=== PATIENT | female | born 1980 | race Caucasian/White ===

== ENCOUNTER 2019-02-22 14:51 | Emergency (ER) | payer SELFPAY ==
[~2019-02-22] VITALS: Ht 154.9 cm; Wt 68.2 kg
[2019-02-22] MEDS ORDERED: dexameTHASONE 20 MG/5 ML VIAL (J1100) IV ONE (15:45)
[2019-02-22] MEDS ORDERED: FAMOTIDINE INJ 20MG/2ML VIAL (S0028) IVP ONE (15:45)
[2019-02-22] MEDS ORDERED: NOVOINJ SC (16:00)
[2019-02-22] MEDS ORDERED: PROMETHAZINE INJ 25 MG/ML VIAL (J2550) IM ONE (16:00)
[2019-02-22] MEDS ORDERED: 5FU (16:00)
[2019-02-22] MEDS ORDERED: PREM0.9T PO (16:00)
[2019-02-22] MEDS ORDERED: LANTINJ4 SC (16:00)
[2019-02-22 18:21] VITALS: BP 133/88
[2019-02-22] MEDS ORDERED: EPIP0.3I2 IM ×2 (18:31→18:44)
== END 2019-02-22 18:40 | disposition home or self-care (01) ==
LOC: M ED 14:51 → EDBD 14:51 → M ED 18:40
DX: R22.0 Localized swelling, mass and lump, head (principal); R00.0 Tachycardia, unspecified; T78.1XXA Other adverse food reactions, not elsewhere classified, initial encounter; X58.XXXA Exposure to other specified factors, initial encounter; Y92.89 Other specified places as the place of occurrence of the external cause; C22.8 Malignant neoplasm of liver, primary, unspecified as to type; Z88.2 Allergy status to sulfonamides; Z88.8 Allergy status to other drugs, medicaments and biological substances; Z91.013 Allergy to seafood; Z79.899 Other long term (current) drug therapy; Z79.4 Long term (current) use of insulin
CPT/HCPCS: 96372; 96374; 96375; 99284; J1100

== ENCOUNTER 2021-04-30 04:01 | Observation (INO) | payer SELFPAY ==
[~2021-04-30] VITALS: Ht 154.9 cm; Wt 66.4 kg
[~2021-04-30 04:01] MED LIST: 5FU; EPIP0.3I2 IM; LANTINJ4 SC; NOVOINJ SC; PREM0.9T PO
[2021-04-30] MEDS ORDERED: NS 1,000 ML IV ONE (04:35)
[2021-04-30 04:49] LABS: BASO # 0.1 10^3/uL (0.0-0.2); BASO % 0.6 % (0.0-1.0); EOS # 0.1 10^3/uL (0.0-0.5); HEMATOCRIT 40.2 % (36.0-47.0); HEMOGLOBIN 13.4 g/dl (12.0-15.5); LYMPH # 2.9 10^3/uL (1.5-5.0); LYMPH % 28.2 % (24.0-44.0); MEAN CORPUSCULAR HEMOGLOBIN 27.4 pg (27.0-33.0); MEAN CORPUSCULAR HGB CONC 33.3 g/dl (32.0-36.5); MEAN CORPUSCULAR VOLUME 82.2 fl (80.0-96.0); MONO # 0.7 10^3/uL (0.0-0.8); MONO % 6.9 % (2.0-8.0); NEUTROPHILS # 6.4 10^3/uL (1.5-8.5); NEUTROPHILS % 62.9 % (36.0-66.0); PLATELET COUNT, AUTOMATED 365 10^3/uL (150-450); RED BLOOD COUNT 4.89 10^6/uL (4.00-5.40); WHITE BLOOD COUNT 10.2 10^3/uL (4.0-10.0)
--- NOTE | 2021-04-30 05:15 | REPVR ---
PROCEDURE INFORMATION: Exam: CT Head Without Contrast Exam date and time: 04/30/2021 4:32 AM Age: 40 years old Clinical indication: Injury or trauma; Fall; Concussion/head injury TECHNIQUE: Imaging protocol: Computed tomography of the head without contrast. Radiation optimization: All CT scans at this facility use at least one of these dose optimization techniques: automated exposure control; mA and/or kV adjustment per patient size (includes targeted exams where dose is matched to clinical indication); or iterative reconstruction. COMPARISON: No relevant prior studies available. FINDINGS: Brain: Upper normal sulci. The caal and white matter is within normal limits. Cerebral ventricles: There is slight prominence of the central ventricular system. Paranasal sinuses: Bilateral maxillary, ethmoid and frontal sinus mucosal thickening and fluid. Mastoid air cells: Visualized mastoid air cells are well aerated. Bones/joints: Unremarkable. No acute fracture. Soft tissues: Unremarkable. IMPRESSION: 1. Minimal atrophic change for age. 2. Bilateral maxillary, ethmoid and frontal sinus disease. 3. Otherwise negative noncontrast head CT. Electronically signed by: Leonides Graham On 04/30/2021 05:14:12 AM
[2021-04-30] MEDS ORDERED: SYNT100T PO (05:16)
[2021-04-30] MEDS ORDERED: ADDE20CA3 PO (05:16)
[2021-04-30] MEDS ORDERED: KLON1TAB PO (05:16)
--- NOTE | 2021-04-30 05:19 | REPVR ---
PROCEDURE INFORMATION: Exam: CT Cervical Spine Without Contrast Exam date and time: 04/30/2021 4:32 AM Age: 40 years old Clinical indication: Neck pain; Additional info: Trauma TECHNIQUE: Imaging protocol: Computed tomography images of the cervical spine without contrast. Radiation optimization: All CT scans at this facility use at least one of these dose optimization techniques: automated exposure control; mA and/or kV adjustment per patient size (includes targeted exams where dose is matched to clinical indication); or iterative reconstruction. COMPARISON: No relevant prior studies available. FINDINGS: Vertebrae: No acute fracture or compression. C2-C3: Slight interspace narrowing with no spinal or foraminal stenosis. C3-C4: The disc is adequately well maintained and no significant degenerative change with no spinal or foraminal stenosis. C4-C5: The disc is within normal limits with no spinal or foraminal stenosis. C5-C6: Mild interspace narrowing with slight retrolisthesis and minimal broad-based posterior osteophytes and bilateral degenerative change, primarily uncovertebral joints with borderline spinal stenosis and borderline left neural foraminal stenosis. C6-C7: Slight interspace narrowing with minimal posterior paracentral osteophytes on the left and degenerative changes of uncovertebral joints. No significant spinal or foraminal stenosis. C7-T1: Mild interspace narrowing with endplate irregularities and Schmorl's defects with slight sclerosis. There is minimal degenerative change of uncovertebral joints with no significant spinal or foraminal stenosis. Soft tissues: Unremarkable. Sinuses: Bilateral maxillary sinus mucosal thickening and fluid. Lungs: Lung apices are normal. IMPRESSION: 1. Bilateral maxillary sinus disease. 2. Multilevel degenerative changes with no significant spinal or foraminal stenosis. 3. Otherwise negative CT cervical spine. No acute fracture or subluxation. Electronically signed by: Leonides Graham On 04/30/2021 05:19:01 AM
[2021-04-30 05:24] LABS: ALBUMIN 3.4 GM/DL (3.2-5.2); ALT/SGPT 16 U/L (12-78); BILIRUBIN,DIRECT 0.1 MG/DL (0.0-0.2); BILIRUBIN,TOTAL 0.4 MG/DL (0.2-1.0); BLOOD UREA NITROGEN 25 MG/DL (7-18); CALCIUM LEVEL 9.8 MG/DL (8.5-10.1); CARBON DIOXIDE LEVEL 23 MEQ/L (21-32); CHLORIDE LEVEL 97 MEQ/L (98-107); CK-MB VALUE MASS < 1.0 NG/ML (<3.6); CPK CREATINE PHOSPHOKINASE 51 U/L (26-192); FREE T4 1.13 NG/DL (0.76-1.46); GLOMERULAR FILTRATION RATE 43.9 (>58); GLUCOSE, FASTING 524 MG/DL (70-100); MB/CK RELATIVE INDEX 1.96 (< OR =4); SODIUM LEVEL 131 MEQ/L (136-145); TOTAL PROTEIN 7.8 GM/DL (6.4-8.2); TROPONIN I < 0.02 NG/ML (< 0.10)
--- NOTE | 2021-04-30 05:24 | REPVR ---
PROCEDURE INFORMATION: Exam: XR Right Knee Exam date and time: 04/30/2021 5:17 AM Age: 40 years old Clinical indication: Pain; Knee; Right; Additional info: Trauma TECHNIQUE: Imaging protocol: XR Right knee. Views: 4 or more views. COMPARISON: CR Femur RIGHT 04/30/2021 4:39 AM FINDINGS: Bones/joints: Normal. Soft tissues: Normal. IMPRESSION: Negative right knee. Electronically signed by: Leonides Graham On 04/30/2021 05:24:05 AM
--- NOTE | 2021-04-30 05:28 | REPVR ---
PROCEDURE INFORMATION: Exam: CT Chest Without Contrast; Diagnostic Exam date and time: 04/30/2021 4:32 AM Age: 40 years old Clinical indication: Pain; Other: Chest; Additional info: Trauma TECHNIQUE: Imaging protocol: Diagnostic computed tomography of the chest without contrast. 3D rendering (Not supervised by radiologist): MIP and/or 3D reconstructed images were created by the technologist. Radiation optimization: All CT scans at this facility use at least one of these dose optimization techniques: automated exposure control; mA and/or kV adjustment per patient size (includes targeted exams where dose is matched to clinical indication); or iterative reconstruction. COMPARISON: CT Spine,cervical w/o contrast 04/30/2021 4:39 AM FINDINGS: Lungs: Minimal dependent atelectasis in the lower lobes. Pleural spaces: Unremarkable. No pneumothorax. No pleural effusion. Heart: Unremarkable. No cardiomegaly. No pericardial effusion. Pulmonary arteries: The main pulmonary artery measures 26 mm. Aorta: The ascending thoracic aorta measures 24 mm. Lymph nodes: Unremarkable. No enlarged lymph nodes. Gallbladder and bile ducts: Status post cholecystectomy. Adjacent cysts or septated cyst adjacent to the gallbladder fossa measuring 4.3 cm with a Hounsfield measurement of -7. Bones/joints: Slight anterior wedge configuration of L1 which appears to be chronic. Soft tissues: Unremarkable. IMPRESSION: 1. Status post cholecystectomy. 2. Adjacent cysts or septated cyst adjacent to the gallbladder fossa measuring 4.3 cm. 3[address] Otherwise negative CT chest. No acute posttraumatic change is seen. Electronically signed by: Leonides Graham On 04/30/2021 05:28:30 AM
--- NOTE | 2021-04-30 05:29 | REPVR ---
PROCEDURE INFORMATION: Exam: XR Right Shoulder Exam date and time: 04/30/2021 5:17 AM Age: 40 years old Clinical indication: Pain; Shoulder; Right; Additional info: Trauma TECHNIQUE: Imaging protocol: XR Right shoulder. Views: 2 or more views. COMPARISON: No relevant prior studies available. FINDINGS: Bones/joints: Normal. Soft tissues: Normal. IMPRESSION: Negative right shoulder. Electronically signed by: Leonides Graham On 04/30/2021 05:29:16 AM
[2021-04-30] MEDS ORDERED: HumuLIN R (REGULAR) INSULIN (NovoLIN R) **100U/ML** PER UNIT IV ONE (05:30)
--- NOTE | 2021-04-30 05:30 | REPVR ---
PROCEDURE INFORMATION: Exam: XR Right Hip Exam date and time: 04/30/2021 5:17 AM Age: 40 years old Clinical indication: Hip pain; Right hip; Additional info: Trauma TECHNIQUE: Imaging protocol: XR Right hip. Views: 2 or 3 views hip with pelvis when performed. COMPARISON: No relevant prior studies available. FINDINGS: Bones/joints: The osseous ring of the pelvis is intact. No right hip fracture. Soft tissues: Unremarkable. Intraperitoneal space: Multiple surgical clips are noted in the central pelvis. IMPRESSION: Negative right hip and pelvis. Electronically signed by: Leonides Graham On 04/30/2021 05:30:26 AM
--- NOTE | 2021-04-30 05:32 | REPVR ---
PROCEDURE INFORMATION: Exam: XR Right Femur Exam date and time: 04/30/2021 5:17 AM Age: 40 years old Clinical indication: Pain; Right; Patient HX: Proximal in hip jacket; Additional info: Trauma TECHNIQUE: Imaging protocol: XR Right femur. Views: 2 views. COMPARISON: No relevant prior studies available. FINDINGS: Bones/joints: Unremarkable. No acute fracture. Soft tissues: Unremarkable. IMPRESSION: Negative right femur. Electronically signed by: Leonides Graham On 04/30/2021 05:31:53 AM
[2021-04-30 05:58] LABS: ABG BASE EXCESS -1.7 (-2.0-2.0); ABG HCO3 21.2 MEQ/L (22.0-26.0); ABG O2 SATURATION 98.3 % (95.0-99.0); ABG PARTIAL PRESSURE CO2 30.4 mmHg (35.0-45.0); ABG PARTIAL PRESSURE O2 107.6 mmHg (75.0-100.0); ABG STANDARD HCO3 23.1 MEQ/L (22.0-26.0); ABG TOTAL CO2 22.2 MEQ/L (22.0-29.0); ABG pH (ARTERIAL) 7.462 UNITS (7.350-7.450)
[2021-04-30 06:47] LABS: RSV AMPLIFICATION NEGATIVE (NEGATIVE)
[2021-04-30] MEDS ORDERED: KETOROLAC 30 MG/ML 1ML VIAL IV ONE (07:30)
[2021-04-30] MEDS: NS 1,000 ML IV SCH ×5 (07:37→20:00)
[2021-04-30] MEDS ORDERED: DEXTROSE 50% 50 ML SYRINGE IV PRN (07:40)
[2021-04-30] MEDS ORDERED: GLUCAGON INJ 1MG VIAL SC PRN (07:40)
[2021-04-30] MEDS ORDERED: GLUCOSE 4GM CHEW TABLET PO PRN (07:40)
[2021-04-30] MEDS ORDERED: clonazePAM 1 MG TAB PO PRN (07:40)
[2021-04-30] MEDS ORDERED: traMADol 50 MG TAB PO PRN (07:40)
[2021-04-30] MEDS ORDERED: ESTR2TAB3 PO (08:46)
[2021-04-30] MEDS ORDERED: ADDE20TA PO (08:46)
[2021-04-30] MEDS ORDERED: INSULANT SC (08:47)
[2021-04-30] MEDS ORDERED: HOME MED LIST COMPLETE! XX SCH (08:50)
[2021-04-30] MEDS ORDERED: AMPHETAMINE/DEXTROAMPHETAMINE 5 MG *ER* CAPSULE (ADDERALL XR) PO SCH (09:00)
[2021-04-30] MEDS: LEVOTHYROXINE 100MCG TABLET (0.1MG) PO SCH (10:08)
[2021-04-30] MEDS: ENOXAPARIN 40MG/0.4ML SYRINGE (J1650 PER 10MG) SC SCH (10:09)
[2021-04-30] MEDS: ADDERALL 5 MG TAB PO SCH ×3 (10:09→16:00)
--- NOTE | 2021-04-30 11:10 | ECGEPIP ---
[facility] - ED Test Date: 2021-04-30 Pat Name: MARIA FARRELL Department: Room: - Gender: Female Creative Services Coordinator: ED : 1980 Requested By: LUC Trejo Order Number: [id number] Reading MD: Nader Campo Measurements Intervals [place] Rate: 111 P: 39 MT: 132 QRS: 58 QRSD: 84 T: 47 QT: 352 QTc: 478 Interpretive Statements Sinus tachycardia NO PRIORS FOR COMPARISON Electronically Signed on 04-30-2021 11:09:52 EST by Nader Campo
[2021-04-30] MEDS: HumaLOG INSULIN (NovoLOG) PER UNIT SC SCH ×2 (11:58→18:58)
[2021-04-30 12:30] LABS: AMPHETAMINES LEVEL URINE POSITIVE (NEGATIVE); BARBITURATES URINE NEGATIVE (NEGATIVE); BENZODIAZEPINES URINE NEGATIVE (NEGATIVE); CANNABINOIDS URINE POSITIVE (NEGATIVE); COCAINE METABOLITE URINE NEGATIVE (NEGATIVE); METHADONE URINE NEGATIVE (NEGATIVE); OPIATES URINE NEGATIVE (NEGATIVE); PHENCYCLIDINE URINE NEGATIVE (NEGATIVE)
--- NOTE | 2021-04-30 15:23 | HPEPDOC ---
[facility] Medical History & Physical Date of Admission Apr 30, 2021 Date of Service: Apr 30, 2021 Attending Physician: SOLO MELENDEZ MD History and Physical CHIEF COMPLAINT: Near syncope, fall and hit head so what brought to the hospital HISTORY OF PRESENT ILLNESS: 40 yo W with a history of DM1, hypothyroidism, ADHD, anxiety who suddenly felt faint and collapsed to the floor with impact to her right side and hit her head and not sure if she had loss of consciousness and EMS was called and she was brought to the ED, with noted hypotension to SBP lowest 82. She denies recent fever, chills, chest pain, palpitations, nausea, emesis, diarrhea, bleeding without a history of hematuria, hematochezia, melena, hematemesis or hemoptysis. She denies recent congestion, rhinorrhea, new productive cough, recent travel or shortness of breath. In the ED she was found to be hypotensive to SBP 82, while saturating well on room air and afebrile. On EKG she was in NSR, troponin was <0.02, WBC was 10.2, hgb 13.4, platelets 365, na 131, K 4, bicarb 23, BUN 25, Cr 1.2, had lactic acidosis to 4, respiratory panel was negative for covid-19, and she was hyperglycemic to 524 that improved to 244 after some insulin in the ED. She was given 1L bolus with a great response to SBP 121 and is now on 250cc/hr NS. She had BCx drawn and had the following imaging that were all grossly negative for acure fractures or pathology. CT head showed no acute intracranial abnormalities, CT of C-spine showed no fractures or subluxation while it showed some sinus fullness with mucosal thickening and fluid bilaterally, CT chest had no opacities, pneumothorax or effusions, R femur XR, R hip XR, R knee CR and R shoulder XR all showed no acute fractures. Given her non-focal ROS outside of near syncope likely i/s/o hypovolemia without evidence of potential infection or cardiac etiology, she is now being admitted for hydration and further investigation. PAST MEDICAL HISTORY: per HPI PAST SURGICAL HISTORY: Appendectomy cholecystectomy 5-6 laparoscopy Hysterectomy SOCIAL HISTORY: Tobacco use: No ETOH: Yes, occasional Illicit drug use: Marijuana ALLERGIES: Please see below. REVIEW OF SYSTEMS: 10 point ROS was otherwise negative, except for the elements noted in the HPI. HOME MEDICATIONS: Please see below. PHYSICAL EXAMINATION: VITAL SIGNS: see below GENERAL APPEARANCE: NAD HEENT: NCAT, EOMI, PERRLA, MMM CARDIOVASCULAR: RRR, no m/r/g LUNGS: CTAB, no crackles, wheezing or rhonchi ABDOMEN: soft, normoactive bowel sounds, NTND MUSCULOSKELETAL: 5/5 strength throughout with full range of motion. Has pain on right side from the fall but has full range of motion EXTREMITIES: WWP, no LE edema, 2+ DP pulses NEUROLOGICAL: CN 3-12 intact, speech is clear, sensation is intact, strength and tone is full. Non-focal examination PSYCHIATRIC: AOx3 LABORATORY DATA and IMAGING: Reviewed. Summarized above. See below for full details. MICROBIOLOGY: Please see below. ASSESSMENT: 40 yo W with a history of DM1, hypothyroidism, ADHD, anxiety who suddenly felt faint and collapsed to the floor with impact to her right side and hit her head and she was brought to the ED where she was found to be hypotensive and with lactic acidosis and hyperglycemia who is now being admitted for lactic acidosis and near syncope likely i/s/o hypovolemia without evidence of potential infection or obvious cardiac etiology, for hydration and further investigation. PLAN: Near syncope: likely i/s/o hypovolemia without evidence of potential infection or obvious cardiac etiology -Remote telemetry -s/p 1L NS in the ED, continue on NS at 250cc/hr -strict I/Os -remote telemetry -EKG was non ischemic and troponin was negative -her hypotension is fluid responsive -encourage PO -f/u BCx -check UA/UCx -chest imaging was negative for potential PNA -respiratory panel was negative -she did show evidence of sinusitis --> will treat with augmentin 875b BID for 7d given hx of DM1 Lactic acidosis: likely 2/2 dehydration with noted hypotension -s/p 1L NS in the ED, continue on NS at 250cc/hr Mild LORNE: likely prerenal 2/2 dehydration with noted fluid responsive hypotension -s/p 1L NS in the ED, continue on NS at 250cc/hr -check daily BMP -avoid nephrotoxins Sinusitis: -she did show evidence of sinusitis on imaging--> will treat with augmentin 875b BID for 7d given hx of DM1 ADHD? -continue home Adderall 20 QD Anxiety: -continue home clonazepam 1mg TIDP Fall: likely 2/2 symptomatic hypotension -hydration plan per above -PT for HSE DVT ppx: lovenox Dispo: medsurg, obs Vital Signs Vital Signs Date Time Temp Pulse Resp B/P (MAP) Pulse Ox O2 Delivery O2 Flow Rate FiO2 04/30/21 06:31 102 19 121/73 (89) 100 04/30/21 06:01 96.5 04/30/21 04:02 Room Air Laboratory Data Labs 24H Laboratory Tests 2 04/30/21 04:27: Bedside Glucose (Misc Panel) 512*H 04/30/21 04:31: Immature Granulocyte % (Auto) 0.4, Neutrophils (%) (Auto) 62.9, Lymphocytes (%) (Auto) 28.2, Monocytes (%) (Auto) 6.9, Eosinophils (%) (Auto) 1.0, Basophils (%) (Auto) 0.6, Neutrophils # (Auto) 6.4, Lymphocytes # (Auto) 2.9, Monocytes # (Auto) 0.7, Eosinophils # (Auto) 0.1, Basophils # (Auto) 0.1, Nucleated Red Blood Cells % (auto) 0.0, Anion Gap 11, Glomerular Filtration Rate 43.9L, Calcium Level 9.8, Total Bilirubin 0.4, Direct Bilirubin 0.1, Aspartate Amino Transf (AST/SGOT) 11, Alanine Aminotransferase (ALT/SGPT) 16, Alkaline Phosphatase 176H, Total Creatine Kinase 51, Creatine Kinase MB < 1.0, Creatine Kinase MB Relative Index 1.96, Troponin I < 0.02, Total Protein 7.8, Albumin 3.4, Albumin/Globulin Ratio 0.8L, Thyroid Stimulating Hormone (TSH) 2.900, Free Thyroxine 1.13 04/30/21 05:30: Blood Gas Bicarbonate Standard 23.1, Arterial Blood pH 7.462H, Arterial Blood Partial Pressure CO2 30.4L, Arterial Blood Partial Pressure O2 107.6H, Arterial Blood Total CO2 22.2, Arterial Blood HCO3 21.2L, Arterial Blood Base Excess - 1.7, Arterial Blood Oxygen Saturation 98.3 04/30/21 05:53: Coronavirus (COVID-19)(PCR) NEGATIVE, Influenza Type A (RT-PCR) NEGATIVE, Influenza Type B (RT-PCR) NEGATIVE, Respiratory Syncytial Virus (PCR) NEGATIVE 04/30/21 06:20: Lactic Acid Level 4.0*H 04/30/21 06:53: Bedside Glucose (Misc Panel) 244H CBC/BMP Laboratory Tests 04/30/21 04:31 Microbiology Microbiology 04/30/21 Blood Culture, Received Pending 04/30/21 Blood Culture, Received Pending Home Medications Scheduled Dextroamphetamine/Amphetamine (Adderall 20 mg Tablet) 20 Mg Tablet, 20 MG PO TID TAKES AT 8AM, 12PM, 4PM Epinephrine (Epipen 2-Brien) 0.3 Mg/0.3 Ml Auto.injct, 1 SYRINGE IM ONCE Estradiol (Estradiol) 2 Mg Tablet, 2 MG PO DAILY Insulin Aspart (Novolog) 100 Unit/1 Ml Cartridge, 1 UNITS SC QID 4 TIMES DAILY BEFORE MEALS. MAX 40 UNITS Insulin Glargine (Lantus) 100 Unit/1 Ml Vial, 35 UNITS SC QHS Levothyroxine Sodium (Synthroid) 100 Mcg Tablet, 100 MCG PO DAILY Scheduled PRN Clonazepam (Klonopin) 1 Mg Tablet, 1 MG PO TID PRN for ANXIETY Allergies Coded Allergies: Sulfa (Sulfonamide Antibiotics) (Verified Allergy, Severe, anaphylaxis, 02/22/19) Shrimp (Verified Allergy, Intermediate, lips numb, 02/22/19) ondansetron (Verified Allergy, Unknown, 02/22/19) RASH A-FIB/CHADSVASC A-FIB History Current/History of A-Fib/PAF?: No Current PO Anticoag Therapy: No Age/Risk Factor Scoring CHADSVASC: CHADSVASC Response (Comments) Value Age Risk Factor Age < 65 years old 0 Gender Risk Factor Female 1 Hx of CHF No 0 Hx of HTN No 0 Hx of Stroke/TIA/or VTE No 0 Hx of Diabetes Yes 1 Hx of Vascular Disease No 0 Total 2 Treatment Treatment ordered: NONE Reason Anticoagulant not given: Not indicated/[id number] SOLO MELENDEZ MD Apr 30, 2021 08:17
[2021-04-30 19:10] VITALS: BP 150/100
[2021-04-30] MEDS ORDERED: LEVEMIR (INSULIN DETEMIR) 1 UNITS/0.01ML SC SCH (21:00)
[2021-04-30] MEDS ORDERED: HumaLOG INSULIN (NovoLOG) PER UNIT SC SCH (21:00)
[2021-04-30] MEDS: AUGMENTIN 875 MG TAB PO SCH (21:02)
[2021-04-30] MEDS: ACETAMINOPHEN TAB 650MG DOSE (2X325MG) PO PRN (21:03)
[2021-04-30] MEDS ORDERED: RAMELTEON 8 MG TAB (ROZEREM) PO PRN (21:50)
[2021-04-30 22:00] VITALS: BP 110/75
[2021-05-01 06:00] VITALS: BP 98/65
[2021-05-01] MEDS: LEVOTHYROXINE 100MCG TABLET (0.1MG) PO SCH (06:12)
[2021-05-01 06:27] LABS: HEMATOCRIT 35.5 % (36.0-47.0); HEMOGLOBIN 11.7 g/dl (12.0-15.5); MEAN CORPUSCULAR HEMOGLOBIN 27.3 pg (27.0-33.0); MEAN CORPUSCULAR VOLUME 82.9 fl (80.0-96.0); PLATELET COUNT, AUTOMATED 307 10^3/uL (150-450); RED BLOOD COUNT 4.28 10^6/uL (4.00-5.40); WHITE BLOOD COUNT 5.9 10^3/uL (4.0-10.0)
[2021-05-01 06:51] LABS: BLOOD UREA NITROGEN 19 MG/DL (7-18); CALCIUM LEVEL 8.4 MG/DL (8.5-10.1); CARBON DIOXIDE LEVEL 23 MEQ/L (21-32); CHLORIDE LEVEL 109 MEQ/L (98-107); CREATININE FOR GFR 0.69 MG/DL (0.55-1.30); GLOMERULAR FILTRATION RATE > 60.0 (>58); GLUCOSE, FASTING 242 MG/DL (70-100); MAGNESIUM LEVEL 1.9 MG/DL (1.8-2.4); POTASSIUM SERUM 3.8 MEQ/L (3.5-5.1); SODIUM LEVEL 139 MEQ/L (136-145)
[2021-05-01] MEDS: ADDERALL 5 MG TAB PO SCH ×2 (08:32→14:48)
[2021-05-01] MEDS: AUGMENTIN 875 MG TAB PO SCH (08:33)
[2021-05-01] MEDS: NS 1,000 ML IV SCH ×2 (08:34→13:02)
[2021-05-01] MEDS: HumaLOG INSULIN (NovoLOG) PER UNIT SC SCH ×2 (08:34→13:01)
[2021-05-01] MEDS ORDERED: ADDE20TA PO (08:34)
[2021-05-01] MEDS: ENOXAPARIN 40MG/0.4ML SYRINGE (J1650 PER 10MG) SC SCH (08:38)
[2021-05-01] MEDS ORDERED: predniSONE 20 MG TAB PO SCH (09:00)
[2021-05-01] MEDS ORDERED: clonazePAM 1 MG TAB PO PRN ×2 (09:00→14:15)
[2021-05-01] MEDS ORDERED: AMOX875T2 PO ×2 (09:26→20:50)
[2021-05-01] MEDS: ACETAMINOPHEN TAB 650MG DOSE (2X325MG) PO PRN (13:03)
[2021-05-01 14:00] VITALS: BP 115/80
--- NOTE | 2021-05-01 14:31 | IPNPDOC ---
Text Note Date of Service The patient was seen on 05/01/21. NOTE SUBJECTIVE: -Has some dizziness. Feels that she would prefer to be discharged tomorrow. -When discussing her stimulant meds because I am concerned about the TID adderall and TID klonopin, with no benzos on tox screen, she explains that she has had these meds as prescribed for years. I curbsided psych and Dr. Subramanian also agrees that her prescriptions do not make the most clinical benefit sense. OBJECTIVE: VITAL SIGNS: see below GENERAL APPEARANCE: NAD HEENT: NCAT, EOMI, PERRLA, MMM CARDIOVASCULAR: RRR, no m/r/g LUNGS: CTAB, no crackles, wheezing or rhonchi ABDOMEN: soft, normoactive bowel sounds, NTND MUSCULOSKELETAL: 5/5 strength throughout with full range of motion. Has pain on right side from the fall but has full range of motion EXTREMITIES: WWP, no LE edema, 2+ DP pulses NEUROLOGICAL: CN 3-12 intact, speech is clear, sensation is intact, strength and tone is full. Non-focal examination PSYCHIATRIC: AOx3 LABORATORY DATA: Reviewed. MICROBIOLOGY: Please see below. ASSESSMENT: 40 yo W with a history of DM1, hypothyroidism, ADHD, anxiety who suddenly felt faint and collapsed to the floor with impact to her right side and hit her head and she was brought to the ED where she was found to be hypotensive and with lactic acidosis and hyperglycemia who is now being admitted for lactic acidosis and near syncope likely i/s/o hypovolemia without evidence of potential infection or obvious cardiac etiology, for hydration and further investigation. PLAN: Near syncope: i/s/o hypovolemia without evidence of potential infection or obvious cardiac etiology -Remote telemetry -s/p 1L NS in the ED, continue on NS at 250cc/hr -strict I/Os -remote telemetry -EKG was non ischemic and troponin was negative -her hypotension is fluid responsive -encourage PO -f/u BCx -check UA/UCx -chest imaging was negative for potential PNA -respiratory panel was negative -she did show evidence of sinusitis --> will treat with augmentin 875b BID for 14d given hx of DM1 and given recent worsening after stopping augmentin for cefdinir that does not have coverage for anerobes Lactic acidosis: likely 2/2 dehydration with noted hypotension -s/p 1L NS in the ED, continue on NS at 250cc/hr Mild LORNE: likely prerenal 2/2 dehydration with noted fluid responsive hypotension -s/p 1L NS in the ED, continue on NS at 250cc/hr -check daily BMP -avoid nephrotoxins Sinusitis: -she did show evidence of sinusitis on imaging--> will treat with augmentin 875b BID for 14d given hx of DM1 and given recent worsening after stopping augmentin for cefdinir that does not have coverage for anerobes -will also give pred 40 for 3d ADHD? -continue home Adderall 20 at BID dosing Anxiety vs. panic disorder: -continue home clonazepam at 1mg DailyP Fall: likely 2/2 symptomatic hypotension -hydration plan per above -PT for HSE DVT ppx: lovenox Dispo: medsurg, obs VS,Fishbone, I+O VS, Fishbone, I+O Laboratory Tests 05/01/21 06:02 Vital Signs Date Time Temp Pulse Resp B/P (MAP) Pulse Ox O2 Delivery O2 Flow Rate FiO2 05/01/21 06:00 98.2 88 18 98/65 (76) 97 Room Air I&O- Last 24 Hours up to 6 AM 05/01/21 06:00 Intake Total 1800 ml Output Total 800 ml Balance 1000 ml SOLO MELENDEZ MD May 01, 2021 14:31
[2021-05-01] MEDS ORDERED: LEVEMIR (INSULIN DETEMIR) 1 UNITS/0.01ML SC SCH (21:00)
--- NOTE | 2021-05-01 21:05 | DS.PDOC ---
Discharge Summary General Date of Admission Apr 30, 2021 at 17:51 Date of Discharge 05/01/2021 Attending Physician: SOLO MELENDEZ MD Discharge Summary PROCEDURES PERFORMED DURING STAY: None ADMITTING DIAGNOSES: Lactic acidosis Dehydration Symptomatic hypotension Hyperglycemia LORNE DISCHARGE DIAGNOSES: Lactic acidosis Dehydration Symptomatic hypotension ADHD and anxiety? With concern for overuse and abuse of prescribed medications DM1 with Hyperglycemia LORNE Sinusitis COMPLICATIONS/CHIEF COMPLAINT: Near Syncope. HISTORY OF PRESENT ILLNESS: 40 yo W with a history of DM1, hypothyroidism, ADHD? and anxiety? who suddenly felt faint and collapsed to the floor with impact to her right side and hit her head and not sure if she had loss of consciousness and EMS was called and she was brought to the ED, with noted hypotension to SBP lowest 82. She denied recent fever, chills, chest pain, palpitations, nausea, emesis, diarrhea, bleeding without a history of hematuria, hematochezia, melena, hematemesis or hemoptysis. She denies recent congestion, rhinorrhea, new productive cough, recent travel or shortness of breath. HOSPITAL COURSE: In the ED she was found to be hypotensive to SBP 82, while saturating well on room air and afebrile. On EKG she was in NSR, troponin was <0.02, WBC was 10.2, hgb 13.4, platelets 365, na 131, K 4, bicarb 23, BUN 25, Cr 1.2, had lactic acidosis to 4, respiratory panel was negative for covid-19, and she was hyperglycemic to 524 that improved to 244 after some insulin in the ED. She was given 1L bolus with a great response to SBP 121 and continued on 250cc/hr NS. She had BCx drawn and had the following imaging that were all grossly negative for acute fractures or pathology. CT head showed no acute intracranial abnormalities, CT of C-spine showed no fractures or subluxation while it showed some sinus fullness with mucosal thickening and fluid bilaterally, CT chest had no opacities, pneumothorax or effusions, R femur XR, R hip XR, R knee CR and R shoulder XR all showed no acute fractures. Given her non-focal ROS outside of near syncope likely i/s/o hypovolemia without evidence of potential infection or cardiac etiology, she was admitted for hydration and investigations. 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 I stopped the klonopin based on the negative tox screen without recent use and reduced her adderall to BID with concern for overuse of stimulants with associated dehydration. I highly recommend an outpa tient psych consultation/referral by PCP for official diagnosis and appropriate treatment and dosing of her medications. Of note, I am also treating her for sinusitis given the radiologic findings and DM1 with poor glycemic control. She reports it having improved after 2 weeks of augmentin but then recently got worse after she was switched to cefdinir for 2 weeks and symptoms returned and is now has fullness and some dizziness. I am now prescribing her another 14d course of augmentin and she is to see her ENT within 2 weeks for this acute on chronic sinusitis. When I first discussed the idea of discharge with Ms. Pitts, she adamantly expressed that she felt that she was not ready to be discharged because she had vertigo and was suggesting meclizine, continued IVF for another 24. During routine care however a few hours later, she was found to be in possession of undeclared pill bottles of Adderall and when she was asked to submit them to staff until time of discharge, she became very upset and Left AMA. DISCHARGE MEDICATIONS: Please see below. ALLERGIES: Please see below. PHYSICAL EXAMINATION ON DISCHARGE: VITAL SIGNS: Please see below. VITAL SIGNS: see below GENERAL APPEARANCE: NAD HEENT: NCAT, EOMI, PERRLA, MMM CARDIOVASCULAR: RRR, no m/r/g LUNGS: CTAB, no crackles, wheezing or rhonchi ABDOMEN: soft, normoactive bowel sounds, NTND MUSCULOSKELETAL: 5/5 strength throughout with full range of motion. Has pain on right side from the fall but has full range of motion EXTREMITIES: WWP, no LE edema, 2+ DP pulses NEUROLOGICAL: CN 3-12 intact, speech is clear, sensation is intact, strength and tone is full. Non-focal examination PSYCHIATRIC: AOx3 LABORATORY DATA: Please see below. IMAGING: CT chest without contrast: No opacities, pneumothorax or effusions. Grossly with in normal limits R femur XR: No fracture or dislocation R hip XR: No noted fractures R knee XR: No fracture R shoulder XR: No acute fractures or dislocation CT head: no facture, bleeding, masses, or infarction, evidence of bilateral sinus disease CT of C-spine: 1. Bilateral maxillary sinus disease. 2. Multilevel degenerative changes with no significant spinal or foraminal stenosis. 3. Otherwise negative CT cervical spine. No acute fracture or subluxation. PROGNOSIS: Good ACTIVITY: As tolerated DIET: Consistent carb DISCHARGE PLAN: Left AMA. After asking to be discharged tomorrow but left AMA after we found more adderall on her that had not declared. I reduced adderall to BID, and she will need PCP to generate a psych referral for official evaluation and treatment of ADHD and anxiety. DISPOSITION: AMA. DISCHARGE INSTRUCTIONS: Home with reduced Adderall to BID, recommending PCP to refer to psych for official evaluation and treatment of ADHD and anxiety. ITEMS TO FOLLOWUP ON ON OUTPATIENT: ADHD Anxiety Stimulant medications and medication overuse/abuse Hydration Glycemic control and diet adherence Sinusitis resolution DISCHARGE CONDITION: Stable TIME SPENT ON DISCHARGE: 35 minutes. Vital Signs/I&Os Vital Signs Date Time Temp Pulse Resp B/P (MAP) Pulse Ox O2 Delivery O2 Flow Rate FiO2 05/01/21 06:00 98.2 88 18 98/65 (76) 97 Room Air I&O- Last 24 Hours up to 6 AM 05/01/21 05:59 Intake Total 1800 ml Output Total 800 ml Balance 1000 ml Laboratory Data Labs 24H Laboratory Tests 2 04/30/21 08:03: Bedside Glucose (Misc Panel) 256H 04/30/21 11:30: Urine Color YELLOW, Urine Appearance CLOUDYH, Urine pH 5.0, Urine Specific [place] 1.029, Urine Protein NEGATIVE, Urine Glucose (UA) 3+H, Urine Ketones TRACEH, Urine Blood NEGATIVE, Urine Nitrite NEGATIVE, Urine Bilirubin NEGATIVE, Urine Urobilinogen 0.2, Urine Leukocyte Esterase NEGATIVE, Urine WBC (Auto) 7H, Urine RBC (Auto) TNTCH, Urine Hyaline Casts (Auto) 0, Urine Bacteria (Auto) NEGATIVE, Urine Squamous Epithelial Cells 8, Urine Mucus (Auto) SMALL, Urine Yeast-Like Cells (Auto) LARGEH, Urine Sperm (Auto) 04/30/21 11:38: Bedside Glucose (Misc Panel) 409H 04/30/21 11:46: Urine Opiates Screen NEGATIVE, Urine Methadone Screen NEGATIVE, Urine Barbiturates Screen NEGATIVE, Urine Phencyclidine Screen NEGATIVE, Urine Amphetamines Screen POSITIVEH, Urine Benzodiazepines Screen NEGATIVE, Urine Coca ine Metabolite Screen NEGATIVE, Urine Cannabinoids Screen POSITIVEH 04/30/21 18:42: Bedside Glucose (Misc Panel) 327H 04/30/21 19:42: Lactic Acid Followup at 4 Hours 2.5*H 04/30/21 20:38: Bedside Glucose (Misc Panel) 259H 05/01/21 05:09: Bedside Glucose (Misc Panel) 204H 05/01/21 06:02: Nucleated Red Blood Cells % (auto) 0.0, Anion Gap 7L, Glomerular Filtration Rate > 60.0, Lactic Acid Level 2.1*H, Calcium Level 8.4L, Magnesium Level 1.9 CBC/BMP Laboratory Tests 05/01/21 06:02 FSBS Laboratory Tests Test 04/30/21 08:03 04/30/21 11:38 04/30/21 18:42 04/30/21 20:38 Range/Units Bedside Glucose (Misc Panel) 256 409 327 259 70-105 MG/DL Test 05/01/21 05:09 Range/Units Bedside Glucose (Misc Panel) 204 70-105 MG/DL Microbiology Microbiology 04/30/21 Blood Culture - Preliminary, Resulted No growth after 24 hours . All specim... 04/30/21 Blood Culture - Preliminary, Resulted No growth after 24 hours . All specim... Discharge Medications Scheduled Amoxicillin/Potassium Clav (Amox-Clav 875-125 mg Tablet) 1 Each Tablet, 875 MG PO BID Dextroamphetamine/Amphetamine (Adderall 20 mg Tablet) 20 Mg Tablet, 20 MG PO BID Epinephrine (Epipen 2-Brien) 0.3 Mg/0.3 Ml Auto.injct, 1 SYRINGE IM ONCE Estradiol (Estradiol) 2 Mg Tablet, 2 MG PO DAILY, (Reported) Insulin Aspart (Novolog) 100 Unit/1 Ml Cartridge, 1 UNITS SC QID, (Reported) 4 TIMES DAILY BEFORE MEALS. MAX 40 UNITS Insulin Glargine (Lantus) 100 Unit/1 Ml Vial, 35 UNITS SC QHS, (Reported) Levothyroxine Sodium (Synthroid) 100 Mcg Tablet, 100 MCG PO DAILY, (Reported) Scheduled PRN Clonazepam (Klonopin) 1 Mg Tablet, 1 MG PO TID PRN for ANXIETY, (Reported) Allergies Coded Allergies: Sulfa (Sulfonamide Antibiotics) (Verified Allergy, Severe, anaphylaxis, 02/22/19) Shrimp (Verified Allergy, Intermediate, lips numb, 02/22/19) ondansetron (Verified Allergy, Unknown, 02/22/19) RASH SOLO MELENDEZ MD May 01, 2021 08:32
== END 2021-05-01 18:11 | disposition left against medical advice (07) ==
LOC: M ED 04:01 → ENRESERV 16:30 → M MSPAV 17:51
PROVIDERS: ADMIT Internal Medicine; ATTEND Internal Medicine
DX: E87.2 Acidosis (principal); E86.0 Dehydration; I95.89 Other hypotension; F90.9 Attention-deficit hyperactivity disorder, unspecified type; F41.9 Anxiety disorder, unspecified; E10.65 Type 1 diabetes mellitus with hyperglycemia; N17.9 Acute kidney failure, unspecified; J32.0 Chronic maxillary sinusitis; R55 Syncope and collapse; E03.9 Hypothyroidism, unspecified; Z79.899 Other long term (current) drug therapy; Z79.2 Long term (current) use of antibiotics; Z79.4 Long term (current) use of insulin; Z79.890 Hormone replacement therapy; Z88.2 Allergy status to sulfonamides; Z91.013 Allergy to seafood; Z88.8 Allergy status to other drugs, medicaments and biological substances
CPT/HCPCS: 36415; 36600; 70450; 71250; 72125; 73030; 73502; 73552; 73564; 80048; 80076; 80307; 81001; 82550; 82553; 82803; 83605; 83735; 84439; 84443; 84484; 85025; 85027; 87040; 87631; 93005; 93041; 96361; 96372; 96374; 96375; 97161; 97530; 99285; J1650; J1885; J7512